=== PATIENT | female | born 1980 | race Caucasian/White ===

== ENCOUNTER 2021-01-15 12:36 | Emergency (ER) | payer OTHER ==
[~2021-01-15 12:36] MED LIST: CELECOXIB400 MG PO; LORTAB 7.5-3251 EACH PO; NORCO 7.5-3251 EACH PO; PAMELOR10 MG PO; PREDNISONE 50 M50 MG PO; PROTONIX 40 MG40 M1 PO; ROBAXIN-750750 MG PO; VOLTAREN GEL 1% TOP
[2021-01-15] MEDS ORDERED: BACTRIM DS TAB1 EACH PO (14:13)
[2021-04-25] MEDS ORDERED: NEURONTIN300 MG PO (09:00)
[2021-04-25] MEDS ORDERED: DETROL LA4 MG PO (09:02)
[2021-04-25] MEDS ORDERED: PROAIR HFA8.5 GM INH (09:02)
== END 2021-01-15 14:31 | disposition home or self-care (01) ==
LOC: ER1 12:36
DX: N76.4 Abscess of vulva (principal); N76.0 Acute vaginitis; F17.210 Nicotine dependence, cigarettes, uncomplicated; Z88.0 Allergy status to penicillin
CPT/HCPCS: 56405; 99282

== ENCOUNTER 2021-03-02 02:42 | Emergency (ER) | payer OTHER ==
[~2021-03-02 02:42] MED LIST changes: +BACTRIM DS TAB1 EACH PO
[2021-03-02] MEDS ORDERED: CLINDAMYCIN HC150 MG PO (05:44)
[2021-04-25] MEDS ORDERED: NEURONTIN300 MG PO (09:00)
[2021-04-25] MEDS ORDERED: DETROL LA4 MG PO (09:02)
[2021-04-25] MEDS ORDERED: PROAIR HFA8.5 GM INH (09:02)
== END 2021-03-02 03:42 | disposition home or self-care (01) ==
LOC: ER1 02:42
DX: N76.4 Abscess of vulva (principal); J45.909 Unspecified asthma, uncomplicated; Z88.0 Allergy status to penicillin
CPT/HCPCS: 56405; 99282

== ENCOUNTER 2021-04-25 09:55 | Inpatient (IN) | payer OTHER ==
[~2021-04-25] VITALS: Ht 162.6 cm; Wt 80.3 kg
[~2021-04-25 09:55] MED LIST changes: +CLINDAMYCIN HC150 MG PO; +DETROL LA4 MG PO; +NEURONTIN300 MG PO; +PROAIR HFA8.5 GM INH
[2021-04-25 11:51] LABS: HEMOGLOBIN 15.4 gm/dl (12.3-15.3); RED BLOOD COUNT 5.23 M/UL (4.00-5.10); WHITE BLOOD COUNT 12.2 K/UL (4.5-11.0)
[2021-04-25 12:29] LABS: BUN/CREATININE RATIO 16 (0-10)
[2021-04-25] MEDS ORDERED: BUSPIRONE HCL5 MG PO (13:25)
[2021-04-25] MEDS ORDERED: CYMBALTA60 MG PO (13:26)
[2021-04-25] MEDS ORDERED: FLORINEF 0.1 M0.1 MG PO (13:26)
[2021-04-25] MEDS ORDERED: SOTALOL80 MG PO (13:26)
[2021-04-25] MEDS ORDERED: DESYREL 50 MG T50 MG PO (13:27)
[2021-04-25] MEDS ORDERED: WELLBUTRIN XL300 MG PO (13:27)
[2021-04-25] MEDS ORDERED: ELURYNG VAGINA1 EACH VG (13:27)
[2021-04-25] MEDS ORDERED: BENTYL 10MG CAP10 MG PO (13:28)
[2021-04-25] MEDS ORDERED: MINIPRESS CAP 11 MG PO (13:29)
[2021-04-25] MEDS ORDERED: ADULT LOW DOSE81 MG PO (14:19)
[2021-04-25] MEDS ORDERED: [UNRECOGNIZED DRUG - REMARK] PO (14:21)
[2021-04-25] MEDS ORDERED: DAILY VITAMIN1 EAC2 PO (14:21)
[2021-04-25] MEDS ORDERED: GLUCOSAMINE1000 MG PO (14:22)
[2021-04-25] MEDS ORDERED: SUPER B-50 COM1 EACH PO (14:22)
[2021-04-26 03:17] LABS: HEMOGLOBIN 12.3 gm/dl (12.3-15.3); RED BLOOD COUNT 4.27 M/UL (4.00-5.10)
[2021-04-26 03:28] LABS: BUN/CREATININE RATIO 13 (0-10)
[2021-04-27 03:52] LABS: HEMOGLOBIN 12.9 gm/dl (12.3-15.3); RED BLOOD COUNT 4.46 M/UL (4.00-5.10); WHITE BLOOD COUNT 8.7 K/UL (4.5-11.0)
[2021-04-27 04:30] LABS: BUN/CREATININE RATIO 14 (0-10)
[2021-04-27] MEDS ORDERED: CEFUROXIME500 MG PO (11:31)
== END 2021-04-27 12:50 | disposition home or self-care (01) | DRG 640 ==
LOC: ER1 09:55 → CDU 13:00 → PROG CARE 13:00
PROVIDERS: Physician Assistant; Physician Assistant Medical; ADMIT Internal Medicine Infectious Disease
PROC: 3E033XZ Introduction of Vasopressor into Peripheral Vein, Percutaneous Approach (ICD-10-PCS; principal; 2021-04-25)
DX: E86.0 Dehydration (principal); R57.1 Hypovolemic shock; I47.1 Supraventricular tachycardia; R07.89 Other chest pain; E87.2 Acidosis; N30.90 Cystitis, unspecified without hematuria; I10 Essential (primary) hypertension; Z20.822 Contact with and (suspected) exposure to COVID-19; F41.9 Anxiety disorder, unspecified; J45.909 Unspecified asthma, uncomplicated; M06.9 Rheumatoid arthritis, unspecified; I95.9 Hypotension, unspecified; F17.210 Nicotine dependence, cigarettes, uncomplicated; M79.7 Fibromyalgia; K21.9 Gastro-esophageal reflux disease without esophagitis; Z79.899 Other long term (current) drug therapy; Z95.0 Presence of cardiac pacemaker; Z90.49 Acquired absence of other specified parts of digestive tract; Z88.0 Allergy status to penicillin; Z82.49 Family history of ischemic heart disease and other diseases of the circulatory system; Z83.3 Family history of diabetes mellitus
CPT/HCPCS: 36415; 71045; 80053; 81001; 82550; 82553; 83605; 83735; 83874; 83880; 84439; 84443; 84484; 84703; 85025; 85379; 85610; 85730; 87040; 87086; 93005; 96374; 99285; C9113; J0696; J1650; J2405; J7030; J7040; U0002

== ENCOUNTER 2021-06-30 15:55 | Emergency (ER) | payer OTHER ==
[~2021-06-30] VITALS: Ht 162.6 cm; Wt 86.2 kg
[~2021-06-30 15:55] MED LIST changes: +ADULT LOW DOSE81 MG PO; +BENTYL 10MG CAP10 MG PO; +BUSPIRONE HCL5 MG PO; +CEFUROXIME500 MG PO; +CYMBALTA60 MG PO; +DAILY VITAMIN1 EAC2 PO; +DESYREL 50 MG T50 MG PO; +ELURYNG VAGINA1 EACH VG; +FLORINEF 0.1 M0.1 MG PO; +GLUCOSAMINE1000 MG PO; +MINIPRESS CAP 11 MG PO; +SOTALOL80 MG PO; +SUPER B-50 COM1 EACH PO; +WELLBUTRIN XL300 MG PO; +[UNRECOGNIZED DRUG - REMARK] PO
== END 2021-06-30 18:45 | disposition home or self-care (01) ==
LOC: ER1 15:55
DX: U07.1 COVID-19 (principal); Z23 Encounter for immunization; F17.200 Nicotine dependence, unspecified, uncomplicated; Z90.49 Acquired absence of other specified parts of digestive tract; Z95.0 Presence of cardiac pacemaker; Z88.0 Allergy status to penicillin
CPT/HCPCS: 99284; M0243

== ENCOUNTER → 2021-11-24 | Outpatient (CLI) | payer OTHER ==
[~2021-11-24] MED LIST changes: +BENZONATATE200 MG PO; +MEDROL DOSEPAK 24 MG PO; +NAPROXEN500 MG PO
== END ==
LOC: HEART 5 11-17 08:15
DX: I20.9 Angina pectoris, unspecified (principal)
CPT/HCPCS: 78452; A9502; J2785

== ENCOUNTER 2021-11-28 17:08 | Emergency (ER) | payer OTHER ==
[~2021-11-28 17:08] MED LIST changes: -BENZONATATE200 MG PO; -MEDROL DOSEPAK 24 MG PO; -NAPROXEN500 MG PO
[2021-11-28 20:09] LABS: HEMOGLOBIN 14.7 gm/dl (12.3-15.3); RED BLOOD COUNT 5.04 M/UL (4.00-5.10); WHITE BLOOD COUNT 7.8 K/UL (4.5-11.0)
[2021-11-28 20:42] LABS: BUN/CREATININE RATIO 32 (0-10)
[2021-11-28] MEDS ORDERED: BENZONATATE200 MG PO (22:56)
[2021-11-28] MEDS ORDERED: MEDROL DOSEPAK 24 MG PO (22:56)
[2021-11-28] MEDS ORDERED: NAPROXEN500 MG PO (22:56)
== END 2021-11-28 23:21 | disposition home or self-care (01) ==
LOC: ER1 17:08
PROVIDERS: Physician Assistant Medical
DX: U07.1 COVID-19 (principal); N28.89 Other specified disorders of kidney and ureter; F17.200 Nicotine dependence, unspecified, uncomplicated; M06.9 Rheumatoid arthritis, unspecified; Z95.0 Presence of cardiac pacemaker; Z88.0 Allergy status to penicillin
CPT/HCPCS: 0240U; 71045; 80053; 85025; 85379; 87081; 87880; 93005; 96374; 99284; J1885; Q9967

== ENCOUNTER → 2022-01-08 | Outpatient (CLI) | payer OTHER ==
[~2022-01-08] MED LIST changes: +BENZONATATE200 MG PO; +MEDROL DOSEPAK 24 MG PO; +NAPROXEN500 MG PO
== END ==
LOC: CT 10-22 16:00
DX: N28.89 Other specified disorders of kidney and ureter (principal); N28.9 Disorder of kidney and ureter, unspecified; M51.17 Intervertebral disc disorders with radiculopathy, lumbosacral region
CPT/HCPCS: 72131; Q9967

== ENCOUNTER → 2022-03-02 | Outpatient (CLI) | payer OTHER ==
[~2022-03-02] MED LIST changes: +BUSPIRONE HCL10 MG PO; +ECOTRIN81 MG PO; +GABAPENTIN600 MG PO; +GEMTESA PO; +HYDROXYZINE PAM25 MG PO; +ISOSORBIDE MONO30 MG PO; +LINZESS PO; +LIPITOR40 MG PO; +NITROGLYCERIN0.4 MG SL; +PRAZOSIN HCL1 MG PO; +ROBAXIN 750 MG750 MG PO
== END ==
LOC: LAB 16:37
DX: Z20.822 Contact with and (suspected) exposure to COVID-19 (principal)
CPT/HCPCS: U0003

== ENCOUNTER → 2022-03-03 | Outpatient (CLI) | payer OTHER ==
[2022-03-03 17:31] LABS: HEMOGLOBIN 13.2 gm/dl (12.3-15.3); RED BLOOD COUNT 4.55 M/UL (4.00-5.10); WHITE BLOOD COUNT 5.3 K/UL (4.5-11.0)
[2022-03-03 17:54] LABS: BUN/CREATININE RATIO 21 (0-10)
== END ==
LOC: RAD 16:35
PROVIDERS: Physician Assistant
DX: R55 Syncope and collapse (principal); R94.39 Abnormal result of other cardiovascular function study; I20.9 Angina pectoris, unspecified; I47.2 Ventricular tachycardia
CPT/HCPCS: 36415; 71046; 80048; 80053; 85025

== ENCOUNTER → 2022-03-04 | Outpatient (CLI) | payer OTHER | LOC: CATH 11:58 | DX: I25.118 Atherosclerotic heart disease of native coronary artery with other forms of angina pectoris (principal); I49.5 Sick sinus syndrome; R94.09 Abnormal results of other function studies of central nervous system; I47.1 Supraventricular tachycardia; I47.2 Ventricular tachycardia; I82.629 Acute embolism and thrombosis of deep veins of unspecified upper extremity; R94.39 Abnormal result of other cardiovascular function study; M19.90 Unspecified osteoarthritis, unspecified site; J45.909 Unspecified asthma, uncomplicated; K21.9 Gastro-esophageal reflux disease without esophagitis; F17.290 Nicotine dependence, other tobacco product, uncomplicated; R55 Syncope and collapse; Z95.0 Presence of cardiac pacemaker; Z88.0 Allergy status to penicillin; Z79.82 Long term (current) use of aspirin; Z20.822 Contact with and (suspected) exposure to COVID-19 | CPT/HCPCS: 84703; 99152; C1769; J1644; J2250; J3010; J7030; Q9967 ==